=== PATIENT | male | born 1980 | race Caucasian/White ===

== ENCOUNTER 2021-11-30 05:30 | Emergency (ER) | payer OTHER ==
[2021-11-30] MEDS ORDERED: TORAdol 30 mg Injection IM ONE (05:42)
[2021-11-30] MEDS ORDERED: TORAdol 30 mg Injection ONE (05:47)
--- NOTE | 2021-11-30 05:57 | ERPHSYRPT ---
- History of Present Illness Historian: patient Exam Limitations: no limitations Patient Subjective Stated Complaint: pt states he has been having rt mid to lower back pain and has pain in his rt groin. states pain was much worse tonight and woke him up. Triage Nursing Assessment: pt alert and oriented, answers questions approp. pt ambulatory with steady gait noted. respirations nonlabored. abd soft and nontender to light palpation. bowel sounds present x4. Timing/Duration: other (1hr) Activities at Onset: sleep Quality: sharpness, stabbing Abdominal Pain Onset Location: flank Pain Radiation: groin (R groin) Severity of Pain-Max: severe Severity of Pain-Current: severe Modifying Factors: Improves With: nothing Associated Symptoms: denies symptoms, back, nausea Previous symptoms: no prior history Hx Tetanus, Diphtheria Vaccination/Date Given: Yes Hx Influenza Vaccination/Date Given: No Hx Pneumococcal Vaccination/Date Given: No Immunizations Up to Date: Yes <DAVIDSON HERNÁNDEZ - Last Filed: 11/30/21 06:41> <ANU MEDELLIN - Last Filed: 11/30/21 08:27> - History of Present Illness Time Seen by Provider: 11/30/21 08:20 Physician History: 41 yo wm w R flank pain x 1Hr. Pain is sharp and 10/10 on scale w radiation to his RLQ. He was seen in clinic today and diagnosed w a UTI for which Cipro was started. Pt has had nausea wo vomiting/diarrhea/melena/hematochezia. His original complaint for which he presented to clinic was dysuria which was mild. Pt has had a milagro. (DAVIDSON HERNÁNDEZ) Allergies/Adverse Reactions: No Known Drug Allergies Allergy (Verified 11/30/21 05:46) Home Medications: Cetirizine HCl [Zyrtec] 10 mg PO DAILY 11/30/21 [History] Ciprofloxacin [Cipro 500 MG] 500 mg PO BID 11/30/21 [History] Lisinopril 10 mg [Zestril 10 MG] 10 mg PO DAILY 11/30/21 [History] Lovastatin [Altoprev] 40 mg PO DAILY 11/30/21 [History] Nabumetone 750 mg PO BID 11/30/21 [History] Omeprazole 40 mg PO DAILY 11/30/21 [History] Tamsulosin HCl 0.4 mg [Flomax 0.4 MG] 0.4 mg PO DAILY 11/30/21 [History] Travel Risk - International Travel Have you traveled outside of the country in past 3 weeks: No - Coronavirus Screening Are you exhibiting any of the following symptoms?: No Close contact with a COVID-19 positive Pt in past 14-21 Days: No - Vaccine Status Have you recieved a Covid-19 vaccination: Yes Regulatory Submissions Specialist: Moderna - Vaccination Dates Date of 2cond Vaccination (if applicable): january 2021 <DAVIDSON HERNÁNDEZ - Last Filed: 11/30/21 06:41> - Review of Systems Constitutional: No Symptoms Eyes: No Symptoms Ears, Nose, & Throat: No Symptoms Respiratory: No Symptoms Cardiac: No Symptoms Abdominal/Gastrointestinal: No Symptoms, Nausea Genitourinary Symptoms: No Symptoms, Dysuria Musculoskeletal: No Symptoms Skin: No Symptoms Neurological: No Symptoms Psychological: No Symptoms Endocrine: No Symptoms Hematologic/Lymphatic: No Symptoms Immunological/Allergic: No Symptoms <DAVIDSON HERNÁNDEZ - Last Filed: 11/30/21 06:41> - Past Medical History Pertinent Past Medical History: Yes Cardiac History: High Cholesterol, Hypertension - Past Surgical History Past Surgical History: Yes Gastrointestinal: Cholecystectomy Musculoskeletal: Orthopedic Surgery Other Surgical History: mult knee surgeries - Social History Smoking Status: Never smoker Exposure to second hand smoke: No Drug Use: none Patient Lives Alone: No Significant Family History: no pertinent family hx <DAVIDSON HERNÁNDEZ - Last Filed: 11/30/21 06:41> - Physical Exam General Appearance: no apparent distress (In pain) Eye Exam: PERRL/EOMI, eyes nml inspection Ears, Nose, Throat Exam: normal ENT inspection, TMs normal, pharynx normal, moist mucous membranes Neck Exam: normal inspection, non-tender, supple, full range of motion, No meningismus, No mass, No Brudzinski, No Kernig's Respiratory Exam: normal breath sounds, lungs clear, airway intact Cardiovascular Exam: regular rate/rhythm, normal heart sounds, normal peripheral pulses, capillary refill <2 sec, No murmur Gastrointestinal/Abdomen Exam: soft, tenderness (RUQ ttp>RLQ TTP) Back Exam: CVA tenderness (Mild R) Extremity Exam: normal inspection, normal range of motion Neurologic Exam: alert, oriented x 3, cooperative, incident response manager II-XII nml as tested, normal mood/affect, nml cerebellar function, nml station & gait, sensation nml Skin Exam: normal color, warm, dry Lymphatic Exam: No adenopathy SpO2 Interpretation: normal SpO2: 99 O2 Delivery: Room Air <DAVIDSON HERNÁNDEZ - Last Filed: 11/30/21 06:41> - Nursing Vital Signs Nursing Vital Signs: Initial Vital Signs Temperature 98.1 F 11/30/21 05:35 Pulse Rate 77 11/30/21 05:35 Respiratory Rate 18 11/30/21 05:35 Blood Pressure 146/96 11/30/21 05:35 O2 Sat by Pulse Oximetry 99 11/30/21 05:35 Pain Scale Pain Intensity 7 Hypertensive (DAVIDSON HERNÁNDEZ) - Course Nursing assessment & vital signs reviewed: Yes - CT Exams Abdomen/Pelvis CT Interpretation: Other (CT scan shows obstructing punctate distal right ureteral and colonic diverticulosis and nonspecific mesenteric stranding and congestion) <ANU MEDELLIN - Last Filed: 11/30/21 08:27> Ordered Tests: Active Orders 24 hr Category Date Time Status IV Insertion STAT Care 11/30/21 06:18 Active ABDOMEN AND PELVIS W/0 CONTRAS [CT] Stat Exams 11/30/21 05:40 Taken AMYLASE Stat Lab 11/30/21 06:35 Completed CBC W DIFF Stat Lab 11/30/21 06:35 Completed CMP Stat Lab 11/30/21 06:35 Completed LIPASE Stat Lab 11/30/21 06:35 Completed UA W/RFX CULTURE Stat Lab 11/30/21 06:18 Completed Medication Summary Discontinued Medications Generic Name Dose Route Start Last Admin Trade Name Armaan PRN Reason Stop Dose Admin Fentanyl Citrate 50 mcg 11/30/21 06:18 11/30/21 06:22 Fentanyl Citrate 100 Mcg/2 Ml* Vial IV 11/30/21 06:19 50 mcg STAT ONE Administration Fentanyl Citrate Confirm 11/30/21 06:20 Fentanyl Citrate 100 Mcg/2 Ml* Vial Administered 11/30/21 06:21 Dose 100 mcg .ROUTE .STK-MED ONE Fentanyl Citrate Confirm 11/30/21 07:10 Fentanyl Citrate 100 Mcg/2 Ml* Vial Administered 11/30/21 07:11 Dose 100 mcg .ROUTE .STK-MED ONE Fentanyl Citrate 75 mcg 11/30/21 07:13 11/30/21 07:18 Fentanyl Citrate 100 Mcg/2 Ml* Vial IV 11/30/21 07:14 Not Given STAT ONE Fentanyl Citrate 50 mcg 11/30/21 07:18 11/30/21 07:19 Fentanyl Citrate 100 Mcg/2 Ml* Vial IV 11/30/21 07:19 50 mcg STAT ONE Administration Fentanyl Citrate 75 mcg 11/30/21 08:12 11/30/21 08:14 Fentanyl Citrate 100 Mcg/2 Ml* Vial IV 11/30/21 08:13 100 mcg STAT ONE Administration Fentanyl Citrate Confirm 11/30/21 08:10 Fentanyl Citrate 100 Mcg/2 Ml* Vial Administered 11/30/21 08:11 Dose 100 mcg .ROUTE .STK-MED ONE Sodium Chloride 1,000 mls @ 999 mls/hr 11/30/21 06:18 11/30/21 08:19 Sodium Chloride 0.9% 1000 Ml IV 11/30/21 07:18 Infused .Q1H1M STA Infusion Sodium Chloride Confirm 11/30/21 06:20 Sodium Chloride 0.9% 1000 Ml Administered 11/30/21 06:21 Dose 1,000 mls @ ud .ROUTE .STK-MED ONE Ketorolac Tromethamine 60 mg 11/30/21 05:42 11/30/21 05:48 Ketorolac Tromethamine 30 Mg/Ml Inj IM 11/30/21 05:43 60 mg STAT ONE Administration Ketorolac Tromethamine Confirm 11/30/21 05:47 Ketorolac Tromethamine 30 Mg/Ml Inj Administered 11/30/21 05:48 Dose 60 mg .ROUTE .STK-MED ONE Ondansetron HCl 4 mg 11/30/21 06:18 11/30/21 06:22 Ondansetron Hcl 4 Mg/2 Ml Vial IV 11/30/21 06:19 4 mg STAT ONE Administration Ondansetron HCl Confirm 11/30/21 06:20 Ondansetron Hcl 4 Mg/2 Ml Vial Administered 11/30/21 06:21 Dose 4 mg .ROUTE .STK-MED ONE Lab/Rad Data: Laboratory Result Diagrams 11/30/21 06:35 11/30/21 06:35 Laboratory Results 11/30/21 11/30/21 11/30/21 Range/Units 06:35 06:35 06:18 WBC 11.1 H (4.0-10.5) K/mm3 RBC 5.05 (4.1-5.6) M/mm3 Hgb 14.7 (12.5-18.0) gm/dl Hct 43.1 (42-50) % MCV 85.3 (78-100) fl MCH 29.1 (26-32) pg MCHC 34.1 (32-36) g/dl RDW 12.9 (11.5-14.0) % Plt Count 238 (150-450) K/mm3 MPV 9.6 (7.5-11.0) fl Gran % 71.3 H (36.0-66.0) % Eos # (Auto) 0.06 (0-0.5) Absolute Lymphs (auto) 2.14 (1.0-4.6) Absolute Monos (auto) 0.96 (0.0-1.3) Lymphocytes % 19.3 L (24.0-44.0) % Monocytes % 8.7 (0.0-12.0) % Eosinophils % 0.5 (0.00-5.0) % Basophils % 0.2 (0.0-0.4) % Absolute Granulocytes 7.90 H (1.4-6.9) Basophils # 0.02 (0-0.4) Sodium 140 (137-145) mmol/L Potassium 4.3 (3.5-5.1) mmol/L Chloride 107 (98-107) mmol/L Carbon Dioxide 22 (22-30) mmol/L Anion Gap 14.7 (5-15) MEQ/L BUN 23 H (9-20) mg/dL Creatinine 0.77 (0.66-1.25) mg/dL Estimated GFR > 60.0 ML/MIN Glucose 109 H (74-106) mg/dL Calcium 8.9 (8.4-10.2) mg/dL Total Bilirubin 0.60 (0.2-1.3) mg/dL AST 29 (17-59) U/L ALT 35 (0-50) U/L Alkaline Phosphatase 52 (38-126) U/L Serum Total Protein 7.1 (6.3-8.2) g/dL Albumin 4.4 (3.5-5.0) g/dL Amylase 58 (30-110) U/L Lipase 136 (23-300) U/L Urinalys Dipstick Clnc MAIN LAB Urine Color YELLOW (YELLOW) Urine Appearance CLEAR (CLEAR) Urine pH 5.0 (5-6) Ur Specific [place] >=1.030 (1.005-1.025) POC Urine Protein Conf TRACE (Negative) Urine Ketones NEGATIVE (NEGATIVE) Urine Nitrite NEGATIVE (NEGATIVE) Urine Bilirubin NEGATIVE (NEGATIVE) Urine Urobilinogen 0.2 (0-1) mg/dL Urine Leukocytes NEGATIVE (NEGATIVE) Urine WBC (Auto) 3-5 (0-5) /HPF Urine RBC (Auto) 0-2 (0-2) /HPF U Epithel Cells (Auto) NONE (FEW) /HPF Urine Bacteria (Auto) FEW (NEGATIVE) /HPF Urine RBC NEGATIVE (0-5) Obdulio/ul Calcium Oxalate Crystal 6-10 (NEGATIVE) /HPF Urine Mucus (Auto) MANY (NEGATIVE) /HPF Ur Culture Indicated? NO Urine Glucose NEGATIVE (NEGATIVE) mg/dL <DAVIDSON HERNÁNDEZ - Last Filed: 11/30/21 06:41> - Progress Progress: improved, pain not gone completely <ANU MEDELLIN - Last Filed: 11/30/21 08:27> - Progress Progress Note: 11/30/21 06:41 60mg IM Toradol w minimal relief IV access obtained after minimal relief w Toradol 1L NS bolus/50umg IV Fentanyl/4mg IV Zofran Care turned over to Dr. Medellin at 7:00AM (DAVIDSON HERNÁNDEZ) <DAVIDSON HERNÁNDEZ - Last Filed: 11/30/21 06:41> - Departure Departure Disposition: Home Critical Care Time: No <ANU MEDELLIN - Last Filed: 11/30/21 08:27> - Departure Clinical Impression: Right ureteral calculus Condition: Stable Instructions: Kidney Stones (DC) Prescriptions: Oxycodone / APAP 10/325 mg [Oxycodone-Acetaminophen 10-325] 1 tab PO Q6H 3 Days #12 tablet MDD 4
[2021-11-30] MEDS ORDERED: Zofran 4 MG/2 ML VIAL IV ONE (06:18)
[2021-11-30] MEDS ORDERED: Sodium Chloride 0.9% 1000 ML 1,000 ML IV STA (06:18)
[2021-11-30] MEDS ORDERED: SUBLIMAZE 100 MCG/2 ML IV ONE ×4 (06:18→08:12)
[2021-11-30] MEDS ORDERED: Sodium Chloride 0.9% 1000 ML 1,000 ML ONE (06:20)
[2021-11-30] MEDS ORDERED: SUBLIMAZE 100 MCG/2 ML ONE ×3 (06:20→08:10)
[2021-11-30] MEDS ORDERED: Zofran 4 MG/2 ML VIAL ONE (06:20)
[2021-11-30 06:41] LABS: Basophil (Absolute #) 0.02 (0-0.4); Eosinophil % 0.5 % (0.00-5.0); Eosinophil (Absolute #) 0.06 (0-0.5); Hematocrit 43.1 % (42-50); Hemoglobin 14.7 gm/dl (12.5-18.0); Lymphocyte (Absolute #) 2.14 (1.0-4.6); Lymphocytes % 19.3 % (24.0-44.0); Mean Cell Volume 85.3 fl (78-100); Mean Corpuscular Hemoglobin 29.1 pg (26-32); Mean Corpuscular Hgb Concent. 34.1 g/dl (32-36); Mean Platelet Volume 9.6 fl (7.5-11.0); Monocyte (Absolute #) 0.96 (0.0-1.3); Monocytes % 8.7 % (0.0-12.0); Neutrophil % 71.3 % (36.0-66.0); Platelet Count 238 K/mm3 (150-450); Red Blood Count 5.05 M/mm3 (4.1-5.6); Red Cell Distribution Width 12.9 % (11.5-14.0); White Blood Count 11.1 K/mm3 (4.0-10.5)
[2021-11-30 06:51] LABS: Appearance CLEAR (CLEAR); Bilirubin NEGATIVE (NEGATIVE); Dipstick done @ ? MAIN LAB; Glucose NEGATIVE (NEGATIVE); Ketones NEGATIVE (NEGATIVE); Nitrite NEGATIVE (NEGATIVE); Protein,Urine Dip TRACE (Negative); RBC NEGATIVE Ery/ul (0-5); Specific Gravity >=1.030 (1.005-1.025); Urobilinogen 0.2 mg/dL (0-1)
[2021-11-30 06:54] VITALS: PULSE 88; O2SAT 96
[2021-11-30 07:02] LABS: Bacteria FEW /HPF (NEGATIVE); Mucus MANY /HPF (NEGATIVE); RBC 0-2 /HPF (0-2); Urine Cultured Indicated? NO
[2021-11-30 07:04] LABS: ALBUMIN 4.4 g/dL (3.5-5.0); ALKALINE PHOSPHATASE 52 U/L (38-126); AMYLASE 58 U/L (30-110); ANION GAP 14.7 MEQ/L (5-15); BLOOD UREA NITROGEN 23 mg/dL (9-20); CHLORIDE 107 mmol/L (98-107); Calcium 8.9 mg/dL (8.4-10.2); Carbon Dioxide 22 mmol/L (22-30); Creatinine 1 0.77 mg/dL (0.66-1.25); EST GLOMERULAR FILTRATION RATE > 60.0 ML/MIN; Glucose 109 mg/dL (74-106); LIPASE 136 U/L (23-300); Potassium 4.3 mmol/L (3.5-5.1); SGOT/AST 29 U/L (17-59); SGPT/ALT 35 U/L (0-50); SODIUM 140 mmol/L (137-145); Total Protein 7.1 g/dL (6.3-8.2)
[2021-11-30 08:24] VITALS: BP 144/95
--- NOTE | 2021-11-30 19:26 | XRAY ---
Indication: Right flank pain. Multiple contiguous axial images obtained through the abdomen and pelvis without contrast using renal stone protocol. Comparison: None Lung bases clear. Heart not enlarged. 1-2 mm right UVJ calculus. Mild right-sided hydronephrosis favors partial obstructive uropathy. No free fluid/air. Noncontrasted stomach and bowel loops appear nonobstructed with normal appendix. Mid abdomen demonstrates tiny mesenteric nodes with mesenteric stranding favoring adenitis. Previous cholecystectomy. Remaining liver, pancreas, spleen, adrenal glands, kidneys, ureters, bladder, and aorta appear unremarkable for noncontrast exam. Osseous structures intact with bilateral L5 spondylolysis without listhesis. Impression: 1. 1-2 mm right UVJ calculus producing partial obstruction. 2. Tiny midabdomen mesenteric nodes with stranding favoring mesenteric adenitis. 3. Incidental L5 spondylolysis without listhesis. Comment: Preliminary interpretation made by C. No critical discrepancy.
== END 2021-11-30 08:42 | disposition home or self-care (01) ==
LOC: ED 05:30
DX: N20.1 Calculus of ureter (principal); R10.31 Right lower quadrant pain; R11.0 Nausea; E78.5 Hyperlipidemia, unspecified; I10 Essential (primary) hypertension; Z79.899 Other long term (current) drug therapy; Z79.891 Long term (current) use of opiate analgesic
CPT/HCPCS: 36000; 36415; 74176; 80053; 81015; 82150; 83690; 85025; 96360; 96372; 96374; 96375; 96376; 99284; J1885; J2405; J3010

== ENCOUNTER 2022-07-24 18:27 | Emergency (ER) | payer OTHER ==
[2022-07-24 19:20] LABS: Basophil (Absolute #) 0.02 x10^3/uL (0-0.4); Eosinophil % 0.6 % (0.00-5.0); Eosinophil (Absolute #) 0.05 x10^3/uL (0-0.5); Hematocrit 43.9 % (42-50); Hemoglobin 14.6 g/dL (12.5-18.0); Lymphocyte (Absolute #) 2.52 x10^3/uL (1.0-4.6); Lymphocytes % 31.9 % (24.0-44.0); Mean Cell Volume 87.1 fL (78-100); Mean Corpuscular Hgb Concent. 33.3 g/dL (32-36); Mean Platelet Volume 9.6 fL (7.5-11.0); Monocyte (Absolute #) 0.86 x10^3/uL (0.0-1.3); Monocytes % 10.9 % (0.0-12.0); Neutrophil % 55.8 % (36.0-66.0); Platelet Count 256 x10^3/uL (150-450); Red Blood Count 5.04 x10^6/uL (4.1-5.6); Red Cell Distribution Width 12.8 % (11.5-14.0); White Blood Count 7.9 x10^3/uL (4.0-10.5)
[2022-07-24 19:27] LABS: Appearance CLEAR (CLEAR); Bilirubin NEGATIVE (NEGATIVE); Dipstick done @ ? MAIN LAB; Glucose NEGATIVE (NEGATIVE); Ketones NEGATIVE (NEGATIVE); Mucus SLIGHT /HPF (NEGATIVE); Nitrite NEGATIVE (NEGATIVE); Protein,Urine Dip NEGATIVE (Negative); RBC 0-2 /HPF (0-2); RBC NEGATIVE Ery/ul (0-5); Specific Gravity >=1.030 (1.005-1.025); Urobilinogen 0.2 mg/dL (0-1); WBC 0-2 /HPF (0-5)
[2022-07-24 19:28] LABS: Urine Cultured Indicated? NO
--- NOTE | 2022-07-24 19:28 | ERPHSYRPT ---
- History of Present Illness Time Seen by Provider: 07/24/22 18:34 Source: patient Exam Limitations: no limitations Patient Subjective Stated Complaint: HTN Triage Nursing Assessment: Patient ambulated back to ED and transferred self to bed. Patient A+O X 3. Patient's skin pink, warm and dry. Patient complains of HTN today. Patient states he started feeling flushed and warm and states his diastolic was 94 then ended up being 110. Patient states his last blood pressure was 171/110. Patient denies pain or discomfort. Physician History: 2-year-old male with history of hypertension, hyperlipidemia, GERD presented in the ER with chief complaint of elevated blood pressure. Patient reports today he got off of his work this morning and felt some flushing sensation on the face/hands, went to bed and woke up around noon time and noticed having similar symptoms again. Checked his blood pressure and diastolic was above 90. Prior to arrival blood pressure was 170/110. Denies any chest pain palpitations or shortness of breath. No visual disturbance, headache, numbness tingling or focal weakness. Does report having some increased salt intake last couple of days. Timing/Duration: today, intermittent, improved Severity: moderate Modifying Factors: Improves With: nothing Associated Symptoms: denies symptoms, No vomiting, No abdominal pain, No shortness of breath, No chest pain, No headaches, No loss of appetite, No syncope, No seizure, No weakness Allergies/Adverse Reactions: No Known Drug Allergies Allergy (Verified 07/24/22 18:34) Home Medications: Cetirizine HCl [Zyrtec] 10 mg PO DAILY 11/30/21 [History] Ciprofloxacin [Cipro 500 MG] 500 mg PO BID 11/30/21 [History] Lisinopril 10 mg [Zestril 10 MG] 10 mg PO DAILY 11/30/21 [History] Lovastatin [Altoprev] 40 mg PO DAILY 11/30/21 [History] Nabumetone 750 mg PO BID 11/30/21 [History] Omeprazole 40 mg PO DAILY 11/30/21 [History] Tamsulosin HCl 0.4 mg [Flomax 0.4 MG] 0.4 mg PO DAILY 11/30/21 [History] Hx Tetanus, Diphtheria Vaccination/Date Given: Yes Hx Influenza Vaccination/Date Given: No Hx Pneumococcal Vaccination/Date Given: No Immunizations Up to Date: Yes Travel Risk - International Travel Have you traveled outside of the country in past 3 weeks: No - Coronavirus Screening Are you exhibiting any of the following symptoms?: No Close contact with a COVID-19 positive Pt in past 14-21 Days: No - Vaccine Status Have you recieved a Covid-19 vaccination: Yes Program/Music Director: Unknown - Vaccination Dates Date of 2cond Vaccination (if applicable): na Dates if Unknown: na - Review of Systems Constitutional: No Symptoms Eyes: No Symptoms Ears, Nose, & Throat: No Symptoms Respiratory: No Symptoms Cardiac: No Symptoms Abdominal/Gastrointestinal: No Symptoms Genitourinary Symptoms: No Symptoms Musculoskeletal: No Symptoms Skin: No Symptoms Neurological: No Symptoms Psychological: No Symptoms Endocrine: No Symptoms Hematologic/Lymphatic: No Symptoms Immunological/Allergic: No Symptoms - Past Medical History Pertinent Past Medical History: Yes Cardiac History: High Cholesterol, Hypertension - Past Surgical History Past Surgical History: Yes Gastrointestinal: Cholecystectomy Musculoskeletal: Orthopedic Surgery Other Surgical History: mult knee surgeries - Social History Smoking Status: Never smoker Exposure to second hand smoke: No Drug Use: none Patient Lives Alone: No Significant Family History: no pertinent family hx - Nursing Vital Signs Nursing Vital Signs: Initial Vital Signs Temperature 97.7 F 07/24/22 18:36 Pulse Rate 75 07/24/22 18:36 Respiratory Rate 18 07/24/22 18:36 Blood Pressure 169/105 07/24/22 18:36 O2 Sat by Pulse Oximetry 99 07/24/22 18:36 Pain Scale Pain Intensity 0 - Physical Exam General Appearance: no apparent distress, alert Eye Exam: PERRL/EOMI, eyes nml inspection Ears, Nose, Throat Exam: normal ENT inspection, TMs normal, pharynx normal, moist mucous membranes Neck Exam: normal inspection, non-tender, supple, full range of motion Respiratory Exam: normal breath sounds, lungs clear Cardiovascular Exam: regular rate/rhythm, normal heart sounds, normal peripheral pulses Gastrointestinal/Abdomen Exam: soft, normal bowel sounds, No tenderness Back Exam: normal inspection, normal range of motion Extremity Exam: normal inspection, normal range of motion Neurologic Exam: alert, oriented x 3, cooperative, distribution operations manager II-XII nml as tested, nml cerebellar function, nml station & gait, sensation nml, No normal mood/affect (Anxious), No motor deficits Skin Exam: normal color SpO2 Interpretation: normal SpO2: 99 O2 Delivery: Room Air - Course EKG Interpreted by Me: RATE (70), Sinus Rhythm, NORMAL AXIS, NORMAL INTERVALS, NORMAL QRS Ordered Tests: Active Orders 24 hr Category Date Time Status CHEST 1 VIEW (PORTABLE) Stat Exams 07/24/22 19:27 Taken CBC W DIFF Stat Lab 07/24/22 19:15 Completed CMP Stat Lab 07/24/22 19:15 Completed NT PRO BNP Stat Lab 07/24/22 19:15 Completed TROPONIN Q4H Lab 07/24/22 19:15 Completed TROPONIN Q4H Lab 07/24/22 23:15 Ordered TROPONIN Q4H Lab 07/25/22 03:15 Ordered UA W/RFX CULTURE Stat Lab 07/24/22 19:04 Completed Lab/Rad Data: Laboratory Result Diagrams 07/24/22 19:15 07/24/22 19:15 Laboratory Results 07/24/22 07/24/22 07/24/22 Range/Units 19:15 19:15 19:15 WBC 7.9 (4.0-10.5) x10^3/uL RBC 5.04 (4.1-5.6) x10^6/uL Hgb 14.6 (12.5-18.0) g/dL Hct 43.9 (42-50) % MCV 87.1 (78-100) fL MCH 29.0 (26-32) pg MCHC 33.3 (32-36) g/dL RDW 12.8 (11.5-14.0) % Plt Count 256 (150-450) x10^3/uL MPV 9.6 (7.5-11.0) fL Gran % 55.8 (36.0-66.0) % Immature Gran % (Auto) 0.5 H (0.00-0.4) % Nucleat RBC Rel Count 0.0 (0.00-0.1) % Eos # (Auto) 0.05 (0-0.5) x10^3/uL Immature Gran # (Auto) 0.04 H (0.00-0.03) x10^3u/L Absolute Lymphs (auto) 2.52 (1.0-4.6) x10^3/uL Absolute Monos (auto) 0.86 (0.0-1.3) x10^3/uL Absolute Nucleated RBC 0.00 (0.00-0.01) x10^3u/L Lymphocytes % 31.9 (24.0-44.0) % Monocytes % 10.9 (0.0-12.0) % Eosinophils % 0.6 (0.00-5.0) % Basophils % 0.3 (0.0-0.4) % Absolute Granulocytes 4.40 (1.4-6.9) x10^3/uL Basophils # 0.02 (0-0.4) x10^3/uL Sodium 135 L (137-145) mmol/L Potassium 4.4 (3.5-5.1) mmol/L Chloride 102 (98-107) mmol/L Carbon Dioxide 26 (22-30) mmol/L Anion Gap 11.6 (5-15) MEQ/L BUN 22 H (9-20) mg/dL Creatinine 0.74 (0.66-1.25) mg/dL Estimated GFR > 60.0 ML/MIN Glucose 102 (74-106) mg/dL Calcium 9.1 (8.4-10.2) mg/dL Total Bilirubin 0.70 (0.2-1.3) mg/dL AST 43 (17-59) U/L ALT 71 H (0-50) U/L Alkaline Phosphatase 63 (38-126) U/L Troponin I < 0.012 (0.000-0.034) ng/mL NT-Pro-B Natriuret Pep < 11.5 (0-450) pg/mL Serum Total Protein 7.8 (6.3-8.2) g/dL Albumin 4.6 (3.5-5.0) g/dL Urinalys Dipstick Clnc Urine Color (YELLOW) Urine Appearance (CLEAR) Urine pH (5-6) Ur Specific [place] (1.005-1.025) POC Urine Protein Conf (Negative) Urine Ketones (NEGATIVE) Urine Nitrite (NEGATIVE) Urine Bilirubin (NEGATIVE) Urine Urobilinogen (0-1) mg/dL Urine Leukocytes (NEGATIVE) Urine WBC (Auto) (0-5) /HPF Urine RBC (Auto) (0-2) /HPF U Epithel Cells (Auto) Urine Bacteria (Auto) Urine RBC (0-5) Obdulio/ul Urine Mucus (Auto) (NEGATIVE) /HPF Ur Culture Indicated? Urine Glucose (NEGATIVE) mg/dL 07/24/22 Range/Units 19:04 WBC (4.0-10.5) x10^3/uL RBC (4.1-5.6) x10^6/uL Hgb (12.5-18.0) g/dL Hct (42-50) % MCV (78-100) fL MCH (26-32) pg MCHC (32-36) g/dL RDW (11.5-14.0) % Plt Count (150-450) x10^3/uL MPV (7.5-11.0) fL Gran % (36.0-66.0) % Immature Gran % (Auto) (0.00-0.4) % Nucleat RBC Rel Count (0.00-0.1) % Eos # (Auto) (0-0.5) x10^3/uL Immature Gran # (Auto) (0.00-0.03) x10^3u/L Absolute Lymphs (auto) (1.0-4.6) x10^3/uL Absolute Monos (auto) (0.0-1.3) x10^3/uL Absolute Nucleated RBC (0.00-0.01) x10^3u/L Lymphocytes % (24.0-44.0) % Monocytes % (0.0-12.0) % Eosinophils % (0.00-5.0) % Basophils % (0.0-0.4) % Absolute Granulocytes (1.4-6.9) x10^3/uL Basophils # (0-0.4) x10^3/uL Sodium (137-145) mmol/L Potassium (3.5-5.1) mmol/L Chloride (98-107) mmol/L Carbon Dioxide (22-30) mmol/L Anion Gap (5-15) MEQ/L BUN (9-20) mg/dL Creatinine (0.66-1.25) mg/dL Estimated GFR ML/MIN Glucose (74-106) mg/dL Calcium (8.4-10.2) mg/dL Total Bilirubin (0.2-1.3) mg/dL AST (17-59) U/L ALT (0-50) U/L Alkaline Phosphatase (38-126) U/L Troponin I (0.000-0.034) ng/mL NT-Pro-B Natriuret Pep (0-450) pg/mL Serum Total Protein (6.3-8.2) g/dL Albumin (3.5-5.0) g/dL Urinalys Dipstick Clnc MAIN LAB Urine Color YELLOW (YELLOW) Urine Appearance CLEAR (CLEAR) Urine pH 5.0 (5-6) Ur Specific [place] >=1.030 A (1.005-1.025) POC Urine Protein Conf NEGATIVE (Negative) Urine Ketones NEGATIVE (NEGATIVE) Urine Nitrite NEGATIVE (NEGATIVE) Urine Bilirubin NEGATIVE (NEGATIVE) Urine Urobilinogen 0.2 (0-1) mg/dL Urine Leukocytes NEGATIVE (NEGATIVE) Urine WBC (Auto) 0-2 (0-5) /HPF Urine RBC (Auto) 0-2 (0-2) /HPF U Epithel Cells (Auto) Not Reportable Urine Bacteria (Auto) Not Reportable Urine RBC NEGATIVE (0-5) Obdulio/ul Urine Mucus (Auto) SLIGHT A (NEGATIVE) /HPF Ur Culture Indicated? NO Urine Glucose NEGATIVE (NEGATIVE) mg/dL - Progress Progress: improved Progress Note: 07/24/22 20:45 42-year-old is evaluated for uncontrolled hypertension. EKG showed sinus rhythm with no ischemic changes, negative troponin and normal BNP. Fairly unremarkable chemistries. Chest x-ray negative for any acute cardiopulmonary findings reviewed by me, official report is pending. Patient blood pressure on reevaluation is improved to 126/80s without any intervention. Part of his symptoms are secondary to his anxiety/stress related as well. Recommended keeping a log and outpatient follow-up with primary care. Do not think needs any changes in blood pressure medication currently. Nonfocal neuro exam. No signs of endorgan damage. Stable for discharge with outpatient follow-up. Recommended low-salt diet. Counseled pt/family regarding: lab results, diagnosis, need for follow-up, rad results - Departure Departure Disposition: Home Clinical Impression: Uncontrolled hypertension Condition: Stable Critical Care Time: No Referrals: LAURENT IRVING MD [Primary Care Provider] - Follow up/PCP as directed (1-2 days for reevaluation) Instructions: Malignant Hypertension (DC) Additional Instructions: Take low-salt diet. Monitor your blood pressure regularly, keep a log and follow-up with primary care for reevaluation. Return to ER for persistent high blood pressure, headache, blurry vision, chest pain, abdominal pain, difficulty breathing etc.
[2022-07-24 19:43] LABS: ALBUMIN 4.6 g/dL (3.5-5.0); ALKALINE PHOSPHATASE 63 U/L (38-126); ANION GAP 11.6 MEQ/L (5-15); BLOOD UREA NITROGEN 22 mg/dL (9-20); CHLORIDE 102 mmol/L (98-107); Calcium 9.1 mg/dL (8.4-10.2); Carbon Dioxide 26 mmol/L (22-30); Creatinine 1 0.74 mg/dL (0.66-1.25); EST GLOMERULAR FILTRATION RATE > 60.0 ML/MIN; Glucose 102 mg/dL (74-106); NT PRO BNP < 11.5 pg/mL (0-450); Potassium 4.4 mmol/L (3.5-5.1); SGOT/AST 43 U/L (17-59); SGPT/ALT 71 U/L (0-50); SODIUM 135 mmol/L (137-145); Total Protein 7.8 g/dL (6.3-8.2)
[2022-07-24 20:07] VITALS: BP 128/85; PULSE 69
[2022-07-24 20:48] VITALS: O2SAT 99
--- NOTE | 2022-07-25 08:13 | XRAY ---
Indication: High blood pressure. Comparison: None Portable chest demonstrates normal heart, lungs, and bony thorax.
== END 2022-07-24 20:56 | disposition home or self-care (01) ==
LOC: ED 18:27
DX: I10 Essential (primary) hypertension (principal); E78.5 Hyperlipidemia, unspecified; Z79.899 Other long term (current) drug therapy
CPT/HCPCS: 36415; 71045; 80053; 81015; 83880; 84484; 85025; 99283